=== PATIENT | female | born 1960 | race Caucasian/White ===

== ENCOUNTER → 2022-02-04 14:34 | Outpatient (BNVA) | payer OTHER, SELFPAY | PROVIDERS: Visit Provider Nurse Practitioner Family | DX: C44.91 Basal cell carcinoma of skin, unspecified (principal) | CPT/HCPCS: 88305 ==

== ENCOUNTER → 2023-11-27 15:51 | Outpatient (BNVA) | payer SELFPAY | PROVIDERS: PCP Nurse Practitioner Family; Visit Provider Nurse Practitioner Family | DX: J32.9 Chronic sinusitis, unspecified (principal) | CPT/HCPCS: 87400; 87426 ==